=== PATIENT | male | born 1960 | race Caucasian/White ===

== ENCOUNTER 2022-12-30 15:27 | Outpatient (CLI) | payer BC | END 2022-12-30 15:28 | disposition home or self-care (01) | LOC: BICMAMMO 15:27 | PROVIDERS: ATTEND Neurological Surgery | DX: M81.0 Age-related osteoporosis without current pathological fracture (principal); M85.851 Other specified disorders of bone density and structure, right thigh; M85.852 Other specified disorders of bone density and structure, left thigh | CPT/HCPCS: 77080 ==

== ENCOUNTER 2023-09-06 08:11 | Outpatient (CLI) | payer BC | END 2023-09-06 08:12 | disposition home or self-care (01) | LOC: MRI 08:11 | PROVIDERS: ATTEND Neurological Surgery | DX: M51.14 Intervertebral disc disorders with radiculopathy, thoracic region (principal); M43.25 Fusion of spine, thoracolumbar region; M48.04 Spinal stenosis, thoracic region; M48.8X4 Other specified spondylopathies, thoracic region; S22.070A Wedge compression fracture of T9-T10 vertebra, initial encounter for closed fracture; M40.204 Unspecified kyphosis, thoracic region; M48.061 Spinal stenosis, lumbar region without neurogenic claudication; Z98.890 Other specified postprocedural states | CPT/HCPCS: 72146; 72148 ==